=== PATIENT | male | born 1955 | race Caucasian/White ===

== ENCOUNTER → 2019-05-24 | Outpatient (CLI) | payer SELFPAY ==
[~2019-05-24] MED LIST: ALLERCLEAR10 MG; CEPH250A; CYCL10; FISH1000; Flecainide Ace150 MG; GLIP5; HYDACE10B; HYDCHL25; METF500; METO50ER; OMEP20ER; TRAZ100; WARF10
[2019-05-24 20:27] LABS: U Amphetamine Screen Not Detected; U Barbituate Screen Not Detected; U Benzodiazapine Screen Not Detected; U Buprenorphine Screen Not Detected; U Cannabinoids Screen Not Detected; U Cocaine Screen Not Detected; U Methadone Screen Not Detected; U Methamphetamine Screen Not Detected; U Opiates Screen DETECTED; U Oxycodone Screen Not Detected; U Propoxyphene Screen Not Detected
== END | disposition home or self-care (01) ==
LOC: LAB SHORT 17:47 → LAB 17:47
DX: Z51.81 Encounter for therapeutic drug level monitoring (principal); Z79.899 Other long term (current) drug therapy

== ENCOUNTER 2020-05-10 09:15 | Day surgery (SDC) | payer OTHER ==
[~2020-05-10] VITALS: Ht 175.3 cm; Wt 90.0 kg
[~2020-05-10 09:15] MED LIST changes: -ALLERCLEAR10 MG; +ALLERCLEAR10 MG PO; +ELIQUIS5 MG PO; +FLECAINIDE ACE150 M1 PO; -GLIP5; +GLIP5 PO; -HYDACE10B; +HYDACE10B PO; -HYDCHL25; +HYDCHL25 PO; +LOSA50 PO; -METF500; +METF500 PO; -METO50ER; +METO50ER PO; -OMEP20ER; +OMEP20ER PO; -TRAZ100; +TRAZ100 PO
--- NOTE | 2020-05-10 15:05 | NUR ---
PT DRESSED, IV DC'D INTACT, DC'D BY THIS RN BY WC, DRIVING PT HOME
[2020-07-11] MEDS ORDERED: FLECAINIDE ACE150 M1 PO (09:09)
[2020-07-11] MEDS ORDERED: ELIQUIS5 MG PO (09:09)
[2020-07-11] MEDS ORDERED: LORA10ER PO (09:10)
[2020-07-11] MEDS ORDERED: GLIP5 PO (09:10)
[2020-07-11] MEDS ORDERED: LOSA50 PO (09:10)
[2020-07-11] MEDS ORDERED: Norco 10-325 T1 EACH PO (09:10)
[2020-07-11] MEDS ORDERED: HYDCHL25 PO (09:10)
[2020-07-11] MEDS ORDERED: METO100ER PO (09:11)
[2020-07-11] MEDS ORDERED: GLUCOPHAGE1000 M1 (09:11)
[2020-07-11] MEDS ORDERED: METO50ER PO (09:12)
[2020-07-11] MEDS ORDERED: OMEP20ER PO (09:12)
[2020-07-11] MEDS ORDERED: TRAZ100 PO (09:12)
== END 2020-05-10 15:00 | disposition home or self-care (01) ==
LOC: MHTC 09:15
DX: Z45.018 Encounter for adjustment and management of other part of cardiac pacemaker (principal); I48.91 Unspecified atrial fibrillation; I49.5 Sick sinus syndrome; I11.0 Hypertensive heart disease with heart failure; I50.32 Chronic diastolic (congestive) heart failure; I44.7 Left bundle-branch block, unspecified; E11.9 Type 2 diabetes mellitus without complications; G47.33 Obstructive sleep apnea (adult) (pediatric); E66.9 Obesity, unspecified; G89.29 Other chronic pain; Z98.890 Other specified postprocedural states; Z85.46 Personal history of malignant neoplasm of prostate; Z68.31 Body mass index [BMI] 31.0-31.9, adult; Z79.01 Long term (current) use of anticoagulants; Z79.899 Other long term (current) drug therapy; Z91.048 Other nonmedicinal substance allergy status
CPT/HCPCS: 33228; 99152; 99153; C1781; C1785; J0690; J1644; J2250; J3010; J7040

== ENCOUNTER 2020-07-17 08:42 | Day surgery (SDC) | payer OTHER ==
[~2020-07-17] VITALS: Ht 177.8 cm; Wt 95.2 kg
[~2020-07-17 08:42] MED LIST changes: +GLUCOPHAGE1000 M1; +LORA10ER PO; +METO100ER PO; +Norco 10-325 T1 EACH PO
== END 2020-07-17 10:52 | disposition home or self-care (01) ==
LOC: ORSCSDS 08:42
PROVIDERS: Surgery
PROC: 0DBL8ZX Excision of Transverse Colon, Via Natural or Artificial Opening Endoscopic, Diagnostic (ICD-10-PCS; principal; 2020-07-17 10:00)
DX: Z12.11 Encounter for screening for malignant neoplasm of colon (principal); Z80.0 Family history of malignant neoplasm of digestive organs; D12.3 Benign neoplasm of transverse colon; K57.30 Diverticulosis of large intestine without perforation or abscess without bleeding; I48.91 Unspecified atrial fibrillation; E11.9 Type 2 diabetes mellitus without complications; K21.9 Gastro-esophageal reflux disease without esophagitis; I10 Essential (primary) hypertension; G47.33 Obstructive sleep apnea (adult) (pediatric); Z95.0 Presence of cardiac pacemaker; Z79.01 Long term (current) use of anticoagulants; Z79.84 Long term (current) use of oral hypoglycemic drugs; Z79.899 Other long term (current) drug therapy
CPT/HCPCS: 82947; 88305; J2704; J7120

== ENCOUNTER 2020-09-24 15:40 | Emergency (ER) | payer OTHER ==
[~2020-09-24] VITALS: Ht 177.8 cm; Wt 95.2 kg
[2020-09-24 16:21] LABS: BASOPHILS ABSOLUTE AUTO 0.03 K/mm3 (0.00-0.23); BASOPHILS PERCENT AUTO 1 % (0-2); EOSINOPHILS ABSOLUTE AUTO 0.11 K/mm3 (0.00-0.68); EOSINOPHILS PERCENT AUTO 2 % (0-6); Hematocrit 42.1 % (37.0-53.0); Hemoglobin 14.3 g/dL (13.5-17.5); IMMATURE GRAN ABSOLUTE AUTO 0.02 K/mm3 (0.00-0.10); IMMATURE GRAN PERCENT AUTO 0 % (0-1); LYMPHOCYTES PERCENT AUTO 21 % (21-46); MONOCYTES ABSOLUTE AUTO 0.53 K/mm3 (0.16-1.47); MONOCYTES PERCENT AUTO 8 % (4-13); Mean Corpuscular HGB 31.6 pg (26.0-34.0); Mean Corpuscular Volume 93 fL (80-100); Mean Platelet Volume 8.8 fL (9.1-12.4); NEUTROPHILS ABSOLUTE AUTO 4.36 K/mm3 (1.96-9.15); NEUTROPHILS PERCENT AUTO 69 % (41-73); Platelet Count 192 K/mm3 (150-400); RDW Coefficient Variation 11.8 % (11.7-14.2); RDW Standard Deviation 40.3 fL (35.1-46.3); Red Blood Cell Count 4.53 M/mm3 (4.30-5.90); White Blood Cell Count 6.35 K/mm3 (4.00-11.30)
[2020-09-24 16:44] LABS: Alanine Aminotransfer (ALT/SGP 72 U/L (12-78); Albumin, Blood 3.9 g/dL (3.4-5.0); Albumin/Globulin Ratio 1.3 (0.8-1.8); Alk Phos 59 U/L (50-136); Anion Gap 3 mmol/L (6-16); Aspartate Aminotrans (AST/SGOT 72 U/L (12-37); Bilirubin, Total 0.7 mg/dL (0.1-1.0); Blood Urea Nitrogen 18 mg/dL (8-24); Bun/Creatinine Ratio 17.1 (12.0-20.0); CO2, Blood 31 mmol/L (21-32); Calcium, Blood 8.8 mg/dL (8.5-10.1); Chloride, Blood 103 mmol/L (98-108); Creatinine, Blood 1.05 mg/dL (0.60-1.20); Glomerular Filtration Rate >60 (60-); Glucose, Blood 197 mg/dL (70-99); Sodium, Blood 137 mmol/L (136-145); Total Protein, Blood 6.9 g/dL (6.4-8.2); Troponin I <0.015 ng/mL (0.000-0.040)
== END 2020-09-24 18:07 | disposition home or self-care (01) ==
LOC: ER 15:40
PROVIDERS: Physician Assistant
DX: R07.9 Chest pain, unspecified (principal); Z88.8 Allergy status to other drugs, medicaments and biological substances; Z79.01 Long term (current) use of anticoagulants; Z79.899 Other long term (current) drug therapy; Z87.891 Personal history of nicotine dependence
CPT/HCPCS: 71046; 80053; 84484; 85025; 93005; 93010; 99285-25

== ENCOUNTER → 2020-11-25 | Outpatient (CLI) | payer OTHER | END | disposition home or self-care (01) | LOC: LAB 15:39 → LAB SHORT 15:39 | DX: C44.02 Squamous cell carcinoma of skin of lip (principal) | CPT/HCPCS: 88305 ==

== ENCOUNTER → 2021-05-20 | Outpatient (CLI) | payer OTHER | END | disposition home or self-care (01) | LOC: LAB SHORT 11:36 | DX: C44.519 Basal cell carcinoma of skin of other part of trunk (principal) | CPT/HCPCS: 88305 ==

== ENCOUNTER → 2021-11-25 | Outpatient (CLI) | payer OTHER | END | disposition home or self-care (01) | LOC: PLD 11:38 → LAB SHORT 11:38 | DX: L57.0 Actinic keratosis (principal) | CPT/HCPCS: 88305 ==

== ENCOUNTER → 2022-09-15 | Outpatient (CLI) | payer OTHER | END | disposition home or self-care (01) | LOC: LAB SHORT 10:20 → PLD 10:20 | DX: D04.62 Carcinoma in situ of skin of left upper limb, including shoulder (principal) | CPT/HCPCS: 88305 ==

== ENCOUNTER → 2022-12-07 | Outpatient (CLI) | payer OTHER | LOC: LAB 13:01 → PLD 13:01 → LAB SHORT 13:01 | DX: L57.0 Actinic keratosis (principal) | CPT/HCPCS: 88305 ==

== ENCOUNTER → 2023-06-09 | Outpatient (CLI) | payer OTHER | END | disposition home or self-care (01) | LOC: LAB SHORT 11:54 → PLD 11:54 | DX: D04.62 Carcinoma in situ of skin of left upper limb, including shoulder (principal) | CPT/HCPCS: 88305 ==

== ENCOUNTER 2025-01-08 07:23 | Day surgery (SDC) | payer OTHER ==
[~2025-01-08] VITALS: Ht 175.3 cm; Wt 88.1 kg
[2025-01-08] MEDS ORDERED: CeFAZolin Sodium 2,000 MG VIAL ONE (08:24)
[2025-01-08] MEDS ORDERED: JARDIANCE25 MG PO (08:28)
--- NOTE | 2025-01-08 08:34 | NUR ---
01/08/25 0834 Susie Benitez 1% w/epi 1:100,000 W/1 CC SODIUM BICARB INJECTION IN RIGHT HAND BY MD KATZ @ 3645.
[2025-01-08 09:28] VITALS: BP 132/87
--- NOTE | 2025-01-08 09:42 | NUR ---
01/08/25 0942 Umm Gregory 0925 PT A&O, VSS, REFUSING DRINK D/T TAKING HIS FRIEND TO BREAKFAST. STS "I'M SWALLOWING FINE".
== END 2025-01-08 09:38 | disposition home or self-care (01) ==
LOC: ORSCSDS 07:23
PROVIDERS: Orthopaedic Surgery
PROC: 0JCJ0ZZ Extirpation of Matter from Right Hand Subcutaneous Tissue and Fascia, Open Approach (ICD-10-PCS; principal; 2025-01-08 09:00)
PROC: 0LN70ZZ Release Right Hand Tendon, Open Approach (ICD-10-PCS; principal; 2025-01-08 09:00)
DX: M65.321 Trigger finger, right index finger (principal); S60.450A Superficial foreign body of right index finger, initial encounter; E11.9 Type 2 diabetes mellitus without complications; I48.91 Unspecified atrial fibrillation; I10 Essential (primary) hypertension; K21.9 Gastro-esophageal reflux disease without esophagitis; G47.33 Obstructive sleep apnea (adult) (pediatric); Z85.46 Personal history of malignant neoplasm of prostate; Z85.820 Personal history of malignant melanoma of skin; Z95.0 Presence of cardiac pacemaker; Z79.01 Long term (current) use of anticoagulants; Z79.84 Long term (current) use of oral hypoglycemic drugs; Z79.899 Other long term (current) drug therapy
CPT/HCPCS: 82947; 88300; J0690; J2704; J7120